=== PATIENT | female | born 1975 | race Caucasian/White ===

== ENCOUNTER 2025-02-25 19:43 | Inpatient (IN) | payer OTHER, SELFPAY ==
[2025-02-25 22:02] VITALS: BMI 34.4
[2025-02-25] MEDS ORDERED: Ondansetron PF 4 MG/2 ML Vial IVP PRN (22:02)
[2025-02-25] MEDS ORDERED: Calcium Carbonate 500 MG ChewTAB PO PRN (22:02)
[2025-02-25] MEDS ORDERED: Albuterol 200 PUFF (6.7GM INHALER) INH PRN (22:08)
[2025-02-25] MEDS ORDERED: Electrolyte Replacement Protocol 1 EACH FS PRN (22:15)
[2025-02-26] MEDS: Acetaminophen 325 MG TAB PO PRN (00:16)
[2025-02-26] MEDS: Pantoprazole 80 MG, Admixture Fee 1 EACH in Sodium Chloride 0.9% 100 ML IVPB SCH (04:37)
[2025-02-26 07:45] LABS: #Basophils 0.04 10x3/uL (0.0-0.2); #Eosinophils 0.23 10x3/uL (0.0-0.7); #Monocytes 0.32 10x3/uL (0.11-0.59); #Neutrophils 2.60 10x3/uL (1.40-6.50); %Basophils 0.8 % (0.0-1.0); %Eosinophils 4.8 % (0.0-10.0); %Lymphocytes 33.2 % (21.0-51.0); %Monocytes 6.7 % (0.0-10.0); %Neutrophils 54.3 % (42.0-75.0); Hematocrit 27.6 % (36.0-47.0); Hemoglobin 8.1 g/dL (12.0-16.0); Mean Corpuscular Hemoglobin 21.9 pg (27.0-31.0); Mean Corpuscular Volume 74.6 fL (78.0-98.0); Platelet Count 103 10x3/uL (130-400); Red Blood Cell (RBC) Count 3.70 mill/uL (4.20-5.40); White Blood Cell (WBC) Count 4.79 10x3/uL (4.8-10.8)
[2025-02-26 07:52] LABS: ALT (SGPT) 24 U/L (Less than 34); AST (SGOT) 44 U/L (11-34); Albumin 2.4 g/dL (3.1-4.5); Alkaline Phosphatase 130 U/L (40-110); Anion Gap 8 mmol/L (10-20); BUN (Urea Nitrogen) 12 mg/dL (7.0-18.7); Bilirubin, Total 0.5 mg/dL (0.3-1.2); Calc. Creatinine Clearance 128 mL/min (70-130); Calcium 7.8 mg/dL (7.8-10.44); Carbon Dioxide 29 mmol/L (22-29); Chloride 103 mmol/L (98-107); Globulin 3.6 g/dL (2.4-3.5); Glucose 120 mg/dL (70-105); Potassium 3.2 mmol/L (3.5-5.1); Sodium 137 mmol/L (136-145)
[2025-02-26 08:08] LABS: Anisocytosis SLIGHT = 6-15 cells HPF (0-5); Microcytosis SLIGHT = 6-15 cells HPF (0-5); Platelet Adequacy Comment Platelets Decreased; Polychromasia SLIGHT = 2-3 cells HPF (0-2)
[2025-02-26] MEDS: Rifaximin 550 MG TAB PO SCH (09:20)
[2025-02-26] MEDS: lamoTRIgine 100 MG TAB PO SCH (09:20)
[2025-02-26] MEDS: Furosemide 40 MG TAB PO SCH (09:22)
[2025-02-26] MEDS: Lactulose 20 GM (30 mL) UDCUP PO SCH (09:22)
[2025-02-26] MEDS: Losartan 25 MG TAB PO SCH (09:23)
[2025-02-26] MEDS: Octreotide Acetate 1,250 MCG in Sodium Chloride 0.9% 250 ML 250 ML IVPB SCH (14:25)
[2025-02-26] MEDS: cefTRIAXone\\ROCEPHIN 1 GM in Sodium Chloride 0.9% 100 ML IVPB SCH (14:25)
[2025-02-26] MEDS: Pantoprazole 40 MG VIAL IVP SCH (14:26)
[2025-02-26 15:21] VITALS: BMI 34.4
[2025-02-26] MEDS ORDERED: Glucagon 1 MG/ML KIT IM PRN (18:34)
[2025-02-26] MEDS ORDERED: Dextrose 50% Abboject 50 ML SYRINGE SLOW IVP PRN (18:34)
[2025-02-26] MEDS: Mirtazapine 15 MG TAB PO SCH (20:32)
[2025-02-26] MEDS: risperiDONE 1 MG TAB PO SCH (20:32)
[2025-02-27 03:57] LABS: Hematocrit 27.5 % (36.0-47.0); Hemoglobin 8.2 g/dL (12.0-16.0); Mean Corpuscular Hemoglobin 22.6 pg (27.0-31.0); Mean Corpuscular Volume 75.8 fL (78.0-98.0); Platelet Count 91 10x3/uL (130-400); Red Blood Cell (RBC) Count 3.63 mill/uL (4.20-5.40); White Blood Cell (WBC) Count 3.74 10x3/uL (4.8-10.8)
[2025-02-27 04:26] LABS: Anion Gap 10 mmol/L (10-20); BUN (Urea Nitrogen) 10 mg/dL (7.0-18.7); Calc. Creatinine Clearance 141 mL/min (70-130); Calcium 7.3 mg/dL (7.8-10.44); Carbon Dioxide 23 mmol/L (22-29); Chloride 106 mmol/L (98-107); Glucose 143 mg/dL (70-105); Magnesium 1.8 mg/dL (1.6-2.6); Potassium 4.2 mmol/L (3.5-5.1); Sodium 135 mmol/L (136-145)
[2025-02-27] MEDS: Magnesium 2 GM/50 ML(in water) 2 GM in Premix 1 BAG IVPB SCH (08:01)
[2025-02-27] MEDS ORDERED: PROPOFOL 20 ML ONE ×2 (09:04→10:00)
[2025-02-27] MEDS ORDERED: Sodium Bicarbonate 2.5 MEQ/5 ML SDV ONE (14:52)
[2025-02-27] MEDS ORDERED: Lidocaine 1% w/Epinephrine 1:100K 20 ML VIAL ONE (14:52)
[2025-02-27 19:03] LABS: RBC Count-Automated (BF) 1039 /cu.mm; WBC/Nucleated-Auto (BF) 88 /cu.mm
[2025-02-27 19:39] LABS: BF Segmented Neutrophils 5 %; Cell Count Non Hematic 63 %
[2025-02-28 03:48] LABS: #Basophils 0.05 10x3/uL (0.0-0.2); #Eosinophils 0.22 10x3/uL (0.0-0.7); #Monocytes 0.36 10x3/uL (0.11-0.59); #Neutrophils 3.46 10x3/uL (1.40-6.50); %Basophils 0.9 % (0.0-1.0); %Eosinophils 3.8 % (0.0-10.0); %Lymphocytes 29.1 % (21.0-51.0); %Monocytes 6.2 % (0.0-10.0); %Neutrophils 59.8 % (42.0-75.0); Hematocrit 30.4 % (36.0-47.0); Hemoglobin 9.0 g/dL (12.0-16.0); Mean Corpuscular Hemoglobin 22.8 pg (27.0-31.0); Mean Corpuscular Volume 77.0 fL (78.0-98.0); Platelet Count 107 10x3/uL (130-400); Red Blood Cell (RBC) Count 3.95 mill/uL (4.20-5.40); White Blood Cell (WBC) Count 5.78 10x3/uL (4.8-10.8)
[2025-02-28 03:55] LABS: Anion Gap 11 mmol/L (10-20); BUN (Urea Nitrogen) 9 mg/dL (7.0-18.7); Calc. Creatinine Clearance 128 mL/min (70-130); Calcium 7.3 mg/dL (7.8-10.44); Carbon Dioxide 24 mmol/L (22-29); Chloride 106 mmol/L (98-107); Glucose 168 mg/dL (70-105); Potassium 4.1 mmol/L (3.5-5.1); Sodium 137 mmol/L (136-145)
[2025-02-28] MEDS: Pantoprazole 40 MG DR.TAB PO SCH (08:45)
[2025-02-28 11:37] VITALS: BP 132/73; TEMP 98.3
== END 2025-02-28 19:28 | disposition home or self-care (01) | DRG 432 ==
LOC: PCU 19:43 → UNDODISIN 02-28 15:19
PROVIDERS: ADMIT Student in an Organized Health Care Education/Training Program; ATTEND Internal Medicine
PROC: 06L38CZ Occlusion of Esophageal Vein with Extraluminal Device, Via Natural or Artificial Opening Endoscopic (ICD-10-PCS; principal; 2025-02-27)
PROC: 0W9G3ZZ Drainage of Peritoneal Cavity, Percutaneous Approach (ICD-10-PCS; 2025-02-27)
DX: K70.31 Alcoholic cirrhosis of liver with ascites (principal); I85.11 Secondary esophageal varices with bleeding; R57.8 Other shock; K76.6 Portal hypertension; F10.10 Alcohol abuse, uncomplicated; F15.10 Other stimulant abuse, uncomplicated; E87.6 Hypokalemia; K31.89 Other diseases of stomach and duodenum; K70.11 Alcoholic hepatitis with ascites; D50.9 Iron deficiency anemia, unspecified
CPT/HCPCS: 36415; 36416; 49083; 80048; 80053; 83735; 85025; 85027; 85060; 86850; 86900; 86901; 89051; J0696; J1815; J2354; J2470; J2550; J2704; J3475; J7030; J7050

== ENCOUNTER 2025-03-17 11:00 | Inpatient (IN) | payer OTHER ==
[2025-03-17 12:45] VITALS: BMI 41.0
[2025-03-17] MEDS ORDERED: Non-Formulary Item 1 EACH (Albuterol 200 PUFF Inh) INH PRN (13:17)
[2025-03-17] MEDS ORDERED: Glucagon 1 MG/ML KIT IM PRN (13:53)
[2025-03-17] MEDS ORDERED: Dextrose 50% Abboject 50 ML SYRINGE SLOW IVP PRN (13:53)
[2025-03-17] MEDS: Furosemide 20 MG (2 mL) VIAL SLOW IVP SCH (15:38)
[2025-03-17] MEDS: Albumin 25% 25 GM (100 mL) BOT IVPB SCH ×2 (15:48→19:30)
[2025-03-17] MEDS: Pantoprazole 40 MG VIAL IVP SCH (20:38)
[2025-03-17] MEDS: Rifaximin 550 MG TAB PO SCH (20:39)
[2025-03-17] MEDS: Lactulose 20 GM (30 mL) UDCUP PO SCH (20:40)
[2025-03-17] MEDS: risperiDONE 1 MG TAB PO SCH (20:40)
[2025-03-17] MEDS ORDERED: Non-Formulary Item 1 EACH (Prazosin Hcl [Prazosin Hcl] 2 MG Capsule) PO SCH (21:00)
[2025-03-17] MEDS ORDERED: Non-Formulary Item 1 EACH (Lactulose 10 Gm/15ml Oral Sol 10 GM/15 ML Ml) PO SCH (21:00)
[2025-03-18] MEDS: Furosemide 40 MG (4 mL) VIAL SLOW IVP SCH (06:06)
[2025-03-18 06:38] LABS: #Basophils Less than 0.03 10x3/uL (0.0-0.2); #Eosinophils 0.04 10x3/uL (0.0-0.7); #Monocytes 0.33 10x3/uL (0.11-0.59); #Neutrophils 2.81 10x3/uL (1.40-6.50); %Basophils 0.5 % (0.0-1.0); %Eosinophils 0.9 % (0.0-10.0); %Lymphocytes 24.2 % (21.0-51.0); %Monocytes 7.8 % (0.0-10.0); %Neutrophils 66.1 % (42.0-75.0); Hematocrit 25.2 % (36.0-47.0); Hemoglobin 7.5 g/dL (12.0-16.0); Mean Corpuscular Hemoglobin 22.0 pg (27.0-31.0); Mean Corpuscular Volume 73.9 fL (78.0-98.0); Platelet Count 105 10x3/uL (130-400); Red Blood Cell (RBC) Count 3.41 mill/uL (4.20-5.40); White Blood Cell (WBC) Count 4.25 10x3/uL (4.8-10.8)
[2025-03-18 07:34] LABS: ALT (SGPT) 17 U/L (Less than 34); AST (SGOT) 35 U/L (11-34); Albumin 3.3 g/dL (3.1-4.5); Alkaline Phosphatase 112 U/L (40-110); Anion Gap 12 mmol/L (10-20); BUN (Urea Nitrogen) 10 mg/dL (7.0-18.7); Bilirubin, Total 0.4 mg/dL (0.3-1.2); Calc. Creatinine Clearance 139 mL/min (70-130); Calcium 7.4 mg/dL (7.8-10.44); Carbon Dioxide 28 mmol/L (22-29); Chloride 105 mmol/L (98-107); Globulin 2.9 g/dL (2.4-3.5); Glucose 139 mg/dL (70-105); Magnesium 2.1 mg/dL (1.6-2.6); Potassium 4.0 mmol/L (3.5-5.1); Sodium 141 mmol/L (136-145)
[2025-03-18] MEDS: lamoTRIgine 100 MG TAB PO SCH (07:51)
[2025-03-18] MEDS ORDERED: Non-Formulary Item 1 EACH (Lamotrigine [Lamictal] 200 MG Tablet) PO SCH (09:00)
[2025-03-18 12:29] LABS: Hematocrit 26.1 % (36.0-47.0); Hemoglobin 7.7 g/dL (12.0-16.0)
[2025-03-18 12:50] LABS: Iron 26 ug/dL (50-170); Iron Binding Capacity, Total 273 mcg/dL (265-497)
[2025-03-18] MEDS ORDERED: Lidocaine 1% w/Epinephrine 1:100K 20 ML VIAL ONE (15:10)
[2025-03-18] MEDS ORDERED: Sodium Bicarbonate 2.5 MEQ/5 ML SDV ONE (15:10)
[2025-03-18 19:58] LABS: RBC Count-Automated (BF) 990 /cu.mm; WBC/Nucleated-Auto (BF) 108 /cu.mm
[2025-03-18 20:32] LABS: BF Segmented Neutrophils 6 %; Cell Count Non Hematic 65 %
[2025-03-18] MEDS: Albumin 25% 25 GM (100 mL) BOT IVPB SCH (23:15)
[2025-03-19 08:20] LABS: #Basophils 0.03 10x3/uL (0.0-0.2); #Eosinophils 0.12 10x3/uL (0.0-0.7); #Monocytes 0.33 10x3/uL (0.11-0.59); #Neutrophils 2.31 10x3/uL (1.40-6.50); %Basophils 0.8 % (0.0-1.0); %Eosinophils 3.1 % (0.0-10.0); %Lymphocytes 28.4 % (21.0-51.0); %Monocytes 8.4 % (0.0-10.0); %Neutrophils 59.0 % (42.0-75.0); Hematocrit 24.5 % (36.0-47.0); Hemoglobin 7.3 g/dL (12.0-16.0); Mean Corpuscular Hemoglobin 22.1 pg (27.0-31.0); Mean Corpuscular Volume 74.0 fL (78.0-98.0); Platelet Count 104 10x3/uL (130-400); Red Blood Cell (RBC) Count 3.31 mill/uL (4.20-5.40); White Blood Cell (WBC) Count 3.91 10x3/uL (4.8-10.8)
[2025-03-19 08:32] LABS: ALT (SGPT) 14 U/L (Less than 34); AST (SGOT) 30 U/L (11-34); Albumin 3.5 g/dL (3.1-4.5); Alkaline Phosphatase 88 U/L (40-110); Anion Gap 9 mmol/L (10-20); BUN (Urea Nitrogen) 9 mg/dL (7.0-18.7); Bilirubin, Total 0.4 mg/dL (0.3-1.2); Calc. Creatinine Clearance 156 mL/min (70-130); Calcium 7.8 mg/dL (7.8-10.44); Carbon Dioxide 30 mmol/L (22-29); Chloride 101 mmol/L (98-107); Globulin 2.3 g/dL (2.4-3.5); Glucose 148 mg/dL (70-105); Potassium 4.9 mmol/L (3.5-5.1); Sodium 135 mmol/L (136-145)
[2025-03-19] MEDS: Pantoprazole 40 MG DR.TAB PO SCH (08:57)
[2025-03-19] MEDS: Furosemide 40 MG TAB PO SCH ×2 (08:57→15:43)
[2025-03-19 09:24] LABS: Anisocytosis SLIGHT = 6-15 cells HPF (0-5); Microcytosis SLIGHT = 6-15 cells HPF (0-5); Platelet Adequacy Comment Platelets Decreased; Polychromasia SLIGHT = 2-3 cells HPF (0-2)
[2025-03-19] MEDS: Sodium Ferric Gluconate 250 MG in Sodium Chloride 0.9% 250 ML 250 ML IVPB SCH (10:07)
[2025-03-19] MEDS: Acetaminophen 500 MG TAB PO PRN (22:44)
[2025-03-19] MEDS: Albuterol 200 PUFF (6.7GM INHALER) INH PRN (22:47)
[2025-03-20 06:09] LABS: #Basophils 0.03 10x3/uL (0.0-0.2); #Eosinophils 0.24 10x3/uL (0.0-0.7); #Monocytes 0.60 10x3/uL (0.11-0.59); #Neutrophils 4.02 10x3/uL (1.40-6.50); %Basophils 0.5 % (0.0-1.0); %Eosinophils 3.8 % (0.0-10.0); %Lymphocytes 22.5 % (21.0-51.0); %Monocytes 9.5 % (0.0-10.0); %Neutrophils 63.5 % (42.0-75.0); Hematocrit 27.8 % (36.0-47.0); Hemoglobin 8.3 g/dL (12.0-16.0); Mean Corpuscular Hemoglobin 22.0 pg (27.0-31.0); Mean Corpuscular Volume 73.5 fL (78.0-98.0); Platelet Count 122 10x3/uL (130-400); Red Blood Cell (RBC) Count 3.78 mill/uL (4.20-5.40); White Blood Cell (WBC) Count 6.32 10x3/uL (4.8-10.8)
[2025-03-20 06:14] LABS: INR-International Normal Ratio 1.5; PTT 36.1 sec (22.9-36.1); Prothrombin Time 18.4 sec (12.0-14.7)
[2025-03-20 06:18] LABS: ALT (SGPT) 16 U/L (Less than 34); AST (SGOT) 38 U/L (11-34); Albumin 3.9 g/dL (3.1-4.5); Alkaline Phosphatase 87 U/L (40-110); Anion Gap 10 mmol/L (10-20); BUN (Urea Nitrogen) 9 mg/dL (7.0-18.7); Bilirubin, Total 0.5 mg/dL (0.3-1.2); Calc. Creatinine Clearance 121 mL/min (70-130); Calcium 8.9 mg/dL (7.8-10.44); Carbon Dioxide 28 mmol/L (22-29); Chloride 103 mmol/L (98-107); Globulin 2.2 g/dL (2.4-3.5); Glucose 154 mg/dL (70-105); Potassium 5.3 mmol/L (3.5-5.1); Sodium 136 mmol/L (136-145)
[2025-03-20] MEDS: Sodium Polystyrene Sulfonate 15 GM (60 mL) BOT PO SCH (11:01)
[2025-03-20] MEDS: Lactulose 20 GM (30 mL) UDCUP PO SCH (16:23)
[2025-03-21 05:38] LABS: Hematocrit 27.6 % (36.0-47.0); Hemoglobin 8.4 g/dL (12.0-16.0); Mean Corpuscular Hemoglobin 22.2 pg (27.0-31.0); Mean Corpuscular Volume 72.8 fL (78.0-98.0); Platelet Count 113 10x3/uL (130-400); Red Blood Cell (RBC) Count 3.79 mill/uL (4.20-5.40); White Blood Cell (WBC) Count 5.13 10x3/uL (4.8-10.8)
[2025-03-21 05:40] LABS: Anion Gap 15 mmol/L (10-20); BUN (Urea Nitrogen) 10 mg/dL (7.0-18.7); Calc. Creatinine Clearance 131 mL/min (70-130); Calcium 9.0 mg/dL (7.8-10.44); Carbon Dioxide 31 mmol/L (22-29); Chloride 97 mmol/L (98-107); Glucose 197 mg/dL (70-105); Potassium 4.2 mmol/L (3.5-5.1); Sodium 139 mmol/L (136-145)
[2025-03-21 05:51] LABS: #Basophils 0.03 10x3/uL (0.0-0.2); #Eosinophils 0.15 10x3/uL (0.0-0.7); #Monocytes 0.46 10x3/uL (0.11-0.59); #Neutrophils 3.19 10x3/uL (1.40-6.50); %Basophils 0.6 % (0.0-1.0); %Eosinophils 2.9 % (0.0-10.0); %Lymphocytes 24.8 % (21.0-51.0); %Monocytes 9.0 % (0.0-10.0); %Neutrophils 62.1 % (42.0-75.0)
[2025-03-21] MEDS: Nystatin Powder 15 GM BOT TOP SCH (21:06)
[2025-03-21] MEDS: Furosemide 40 MG TAB PO SCH (21:07)
[2025-03-22 05:58] LABS: #Basophils 0.04 10x3/uL (0.0-0.2); #Eosinophils 0.20 10x3/uL (0.0-0.7); #Monocytes 0.49 10x3/uL (0.11-0.59); #Neutrophils 2.90 10x3/uL (1.40-6.50); %Basophils 0.8 % (0.0-1.0); %Eosinophils 4.2 % (0.0-10.0); %Lymphocytes 23.4 % (21.0-51.0); %Monocytes 10.2 % (0.0-10.0); %Neutrophils 60.6 % (42.0-75.0); Hematocrit 28.1 % (36.0-47.0); Hemoglobin 8.3 g/dL (12.0-16.0); Mean Corpuscular Hemoglobin 21.8 pg (27.0-31.0); Mean Corpuscular Volume 73.8 fL (78.0-98.0); Platelet Count 122 10x3/uL (130-400); Red Blood Cell (RBC) Count 3.81 mill/uL (4.20-5.40); White Blood Cell (WBC) Count 4.79 10x3/uL (4.8-10.8)
[2025-03-22 06:17] LABS: Anion Gap 14 mmol/L (10-20); BUN (Urea Nitrogen) 9 mg/dL (7.0-18.7); Calc. Creatinine Clearance 98 mL/min (70-130); Calcium 9.4 mg/dL (7.8-10.44); Carbon Dioxide 31 mmol/L (22-29); Chloride 96 mmol/L (98-107); Glucose 215 mg/dL (70-105); Potassium 4.2 mmol/L (3.5-5.1); Sodium 137 mmol/L (136-145)
[2025-03-23 05:43] LABS: #Basophils 0.04 10x3/uL (0.0-0.2); #Eosinophils 0.20 10x3/uL (0.0-0.7); #Monocytes 0.54 10x3/uL (0.11-0.59); #Neutrophils 2.90 10x3/uL (1.40-6.50); %Basophils 0.8 % (0.0-1.0); %Eosinophils 4.1 % (0.0-10.0); %Lymphocytes 24.6 % (21.0-51.0); %Monocytes 11.0 % (0.0-10.0); %Neutrophils 58.9 % (42.0-75.0); Hematocrit 27.8 % (36.0-47.0); Hemoglobin 8.4 g/dL (12.0-16.0); Mean Corpuscular Hemoglobin 22.6 pg (27.0-31.0); Mean Corpuscular Volume 74.9 fL (78.0-98.0); Platelet Count 115 10x3/uL (130-400); Red Blood Cell (RBC) Count 3.71 mill/uL (4.20-5.40); White Blood Cell (WBC) Count 4.92 10x3/uL (4.8-10.8)
[2025-03-23 05:49] LABS: Anion Gap 13 mmol/L (10-20); BUN (Urea Nitrogen) 11 mg/dL (7.0-18.7); Calc. Creatinine Clearance 95 mL/min (70-130); Calcium 9.3 mg/dL (7.8-10.44); Carbon Dioxide 31 mmol/L (22-29); Chloride 98 mmol/L (98-107); Glucose 186 mg/dL (70-105); Potassium 4.4 mmol/L (3.5-5.1); Sodium 138 mmol/L (136-145)
[2025-03-23 06:06] LABS: Microcytosis SLIGHT = 6-15 cells HPF (0-5); Platelet Adequacy Comment Platelets Decreased; Polychromasia SLIGHT = 2-3 cells HPF (0-2); Smudge Cells 1.0 %; Target Cells SLIGHT = 2-5 cells HPF (0-1)
[2025-03-23] MEDS: Ondansetron PF 4 MG/2 ML Vial IVP PRN (10:50)
[2025-03-24 06:18] LABS: #Basophils Less than 0.03 10x3/uL (0.0-0.2); #Eosinophils 0.20 10x3/uL (0.0-0.7); #Monocytes 0.46 10x3/uL (0.11-0.59); #Neutrophils 2.81 10x3/uL (1.40-6.50); %Basophils 0.4 % (0.0-1.0); %Eosinophils 4.4 % (0.0-10.0); %Lymphocytes 21.9 % (21.0-51.0); %Monocytes 10.2 % (0.0-10.0); %Neutrophils 62.2 % (42.0-75.0); Hematocrit 29.0 % (36.0-47.0); Hemoglobin 8.6 g/dL (12.0-16.0); Mean Corpuscular Hemoglobin 22.6 pg (27.0-31.0); Mean Corpuscular Volume 76.3 fL (78.0-98.0); Platelet Count 108 10x3/uL (130-400); Red Blood Cell (RBC) Count 3.80 mill/uL (4.20-5.40); White Blood Cell (WBC) Count 4.52 10x3/uL (4.8-10.8)
[2025-03-24 06:32] LABS: Anion Gap 10 mmol/L (10-20); BUN (Urea Nitrogen) 11 mg/dL (7.0-18.7); Calc. Creatinine Clearance 113 mL/min (70-130); Calcium 9.4 mg/dL (7.8-10.44); Carbon Dioxide 31 mmol/L (22-29); Chloride 99 mmol/L (98-107); Glucose 242 mg/dL (70-105); Potassium 4.2 mmol/L (3.5-5.1); Sodium 136 mmol/L (136-145)
[2025-03-24] MEDS: Furosemide 40 MG TAB PO SCH (09:10)
[2025-03-24 15:09] VITALS: BMI 38.8
[2025-03-25 05:51] LABS: Anion Gap 13 mmol/L (10-20); BUN (Urea Nitrogen) 10 mg/dL (7.0-18.7); Calc. Creatinine Clearance 141 mL/min (70-130); Calcium 8.6 mg/dL (7.8-10.44); Carbon Dioxide 27 mmol/L (22-29); Chloride 103 mmol/L (98-107); Glucose 120 mg/dL (70-105); Potassium 4.6 mmol/L (3.5-5.1); Sodium 138 mmol/L (136-145)
[2025-03-25 14:13] VITALS: BP 102/64; TEMP 98.4
== END 2025-03-25 14:45 | disposition home or self-care (01) | DRG 433 ==
LOC: T4-B 12:14
PROVIDERS: ADMIT Family Medicine; ATTEND Internal Medicine
PROC: 0W9G3ZX Drainage of Peritoneal Cavity, Percutaneous Approach, Diagnostic (ICD-10-PCS; principal; 2025-03-18)
DX: K70.31 Alcoholic cirrhosis of liver with ascites (principal); J90 Pleural effusion, not elsewhere classified; K76.6 Portal hypertension; B19.20 Unspecified viral hepatitis C without hepatic coma; D50.9 Iron deficiency anemia, unspecified; E03.9 Hypothyroidism, unspecified; I10 Essential (primary) hypertension; E87.6 Hypokalemia; R16.1 Splenomegaly, not elsewhere classified; D69.59 Other secondary thrombocytopenia; F15.10 Other stimulant abuse, uncomplicated; F32.A Depression, unspecified; F41.9 Anxiety disorder, unspecified; G25.81 Restless legs syndrome; F43.10 Post-traumatic stress disorder, unspecified; Z79.84 Long term (current) use of oral hypoglycemic drugs; Z79.899 Other long term (current) drug therapy; F12.10 Cannabis abuse, uncomplicated
CPT/HCPCS: 36415; 36416; 49083; 76705; 80048; 80053; 82728; 83540; 83550; 83735; 84443; 85025; 85060; 85610; 85730; 89051; 94640; J1815; J1940; J2270; J2405; J2470; J2916; J7050; J7120; J7620; P9047; Q0162

== ENCOUNTER 2025-07-17 16:05 | Emergency (ER) | payer OTHER ==
[~2025-07-17 16:05] MED LIST: Iopamidol-370 76% 500 ML MDV (1 ML CHARGE) ONE
[2025-07-17 16:38] LABS: #Basophils Less than 0.03 10x3/uL (0.0-0.2); #Eosinophils 0.14 10x3/uL (0.0-0.7); #Monocytes 0.38 10x3/uL (0.11-0.59); #Neutrophils 2.94 10x3/uL (1.40-6.50); %Basophils 0.4 % (0.0-1.0); %Eosinophils 2.7 % (0.0-10.0); %Lymphocytes 32.8 % (21.0-51.0); %Monocytes 7.3 % (0.0-10.0); %Neutrophils 56.6 % (42.0-75.0); Hematocrit 39.1 % (36.0-47.0); Hemoglobin 12.8 g/dL (12.0-16.0); Mean Corpuscular Hemoglobin 27.2 pg (27.0-31.0); Mean Corpuscular Volume 83.0 fL (78.0-98.0); Platelet Count 90 10x3/uL (130-400); Red Blood Cell (RBC) Count 4.71 mill/uL (4.20-5.40); White Blood Cell (WBC) Count 5.19 10x3/uL (4.8-10.8)
[2025-07-17] MEDS ORDERED: Pantoprazole 40 MG VIAL ONE (16:54)
[2025-07-17] MEDS ORDERED: Ondansetron PF 4 MG/2 ML Vial ONE (16:54)
[2025-07-17 16:56] LABS: ALT (SGPT) 37 U/L (Less than 34); AST (SGOT) 65 U/L (11-34); Albumin 2.7 g/dL (3.1-4.5); Alkaline Phosphatase 180 U/L (40-110); Anion Gap 13 mmol/L (10-20); BUN (Urea Nitrogen) 9 mg/dL (7.0-18.7); Bilirubin, Total 1.0 mg/dL (0.3-1.2); Calc. Creatinine Clearance 0 mL/min (70-130); Calcium 8.3 mg/dL (7.8-10.44); Carbon Dioxide 23 mmol/L (22-29); Chloride 104 mmol/L (98-107); Globulin 4.5 g/dL (2.4-3.5); Glucose 183 mg/dL (70-105); Lipase 19 U/L (8-78); Potassium 4.1 mmol/L (3.5-5.1); Sodium 136 mmol/L (136-145)
[2025-07-17 17:09] LABS: Glucose, Urine (Dipstick) Negative (Negative); Leukocyte Negative (Negative); Protein, Urine (Dipstick) Trace mg/dL (Neg-Trace); Specific Gravity, Urine Greater/Equal 1.030 (1.005-1.030)
[2025-07-17 17:10] LABS: Bacteria/HPF None Seen HPF (None Seen); CAUTI Indications for Culture Dysuria,urgency,freq; RBC/HPF 0-3 HPF (0-3); WBC/HPF None Seen HPF (0-3)
[2025-07-17 17:11] LABS: Urine Culture Reflex No No
== END 2025-07-17 19:17 | disposition home or self-care (01) ==
LOC: ERS 16:05
DX: K29.00 Acute gastritis without bleeding (principal); I10 Essential (primary) hypertension; F17.290 Nicotine dependence, other tobacco product, uncomplicated
CPT/HCPCS: 74177; 80053; 81001; 83690; 85025; 96361; 96374; 96375; 96376; J2270; J2272; J2405; J2470; Q9967